=== PATIENT | male | born 1960 | race African-American/Black ===

== ENCOUNTER 2023-10-06 20:09 | Emergency (ER) | payer SELFPAY ==
--- NOTE | ~2023-10-06 | CT_ITS ---
EXAMINATION: CT head for stroke CLINICAL INFORMATION: Reason for Exam dizziness, sudden onset headache COMPARISON: None. TECHNIQUE: Contiguous axial imaging was performed from the skull base to vertex without intravenous contrast. Sagittal and coronal reformatted images were obtained. This CT examination was performed using dose optimization techniques as appropriate, variously including the following: * Automated exposure control * Adjustment of mA and/or kV according to patient size (this includes techniques or standardized protocols for targeted exams where dose is matched to indication/reason for exam; i.e. extremities or head) Use of iterative reconstruction technique DLP: 656 mGy-cm FINDINGS: No acute osseous or soft tissue abnormality. The mastoids are clear. Ethmoid and maxillary sinus mucosal thickening. 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 There is no evidence of acute intracranial hemorrhage or territorial infarction. No abnormal mass effect or midline shift is seen. Haynes to white matter differentiation is well preserved. No extra-axial fluid collections are identified. No hydrocephalus. Cavum septum pellucidum et vergae. No significant volume loss. Patchy periventricular and deep white matter hypoattenuation is consistent with mild small vessel ischemic changes. CT/CT head for stroke IMPRESSION: No acute intracranial abnormality including hemorrhage, mass effect, hydrocephalus, or acute territorial edematous infarction. Above impression was communicated to Dr Abdul on 10/06/2023 8:52 PM
--- NOTE | ~2023-10-06 | MR_ITS ---
EXAMINATION: MR ANGIOGRAPHY BRAIN WITHOUT CONTRAST CLINICAL INFORMATION: crespo ? anurysum ? cva COMPARISON: Same day CT head without contrast TECHNIQUE: Noncontrast [id number] MRA of the head was performed. FINDINGS: Normal flow-related signal within the anterior circulation without evidence of focal stenosis or occlusion of the intradural internal carotid, middle cerebral, or anterior cerebral arteries. Normal flow-related signal within the posterior circulation without evidence of focal stenosis or occlusion of the intradural vertebral, basilar, superior cerebellar, or posterior cerebral arteries. No demonstrated intradural aneurysms. MR/MR angio head wo con IMPRESSION: Normal MRA of the head. No intracranial aneurysm is identified.
[2023-10-06 20:14] VITALS: BP 124/79; PULSE 93; RESP 18; TEMP 36.7; O2SAT 98; BMI 25.3
--- NOTE | 2023-10-06 20:26 | PC.NURSE ---
Charge notified of pt complaint, pt brought back to room 22H.
--- NOTE | 2023-10-06 20:29 | ECG_ITS ---
Test Reason : STROKE? Blood Pressure : / mmHG Vent. Rate : 081 BPM Atrial Rate : 081 BPM P-R Int : 146 ms QRS Dur : 072 ms QT Int : 334 ms P-R-T Axes : 063 054 071 degrees QTc Int : 387 ms Normal sinus rhythm Normal ECG No previous ECGs available Referred By: Flavio Tom Electronically Signed By:JENNIFER MCDONALD MD
[2023-10-06 20:57] LABS: Prothrombin Time Whole Bld POC 13.8 sec (11.1-13.5); ~PT, ~INR - Anti Coag Clinic 1.1 (0.9-1.1)
[2023-10-06] MEDS: Metoclopramide HCl 10 MG/2 ML VIAL IVPUSH (21:02)
[2023-10-06] MEDS: Ketorolac Tromethamine 15 MG/ML VIAL IVPUSH (21:02)
--- NOTE | 2023-10-06 21:03 | ED_ITS ---
HPI - General Adult General Chief complaint: General Medical Stated complaint: dizziness/weakness stroke? THC in system Time Seen by Provider: 10/06/23 20:32 History of Present Illness HPI narrative: Patient is a 62-year-old male presented today with having sudden onset of headache. Patient's headache is diffuse. Patient rates it as extreme. There is no focal weakness. Patient feels somewhat dizzy all day. Then developed a headache. Has no history of migraine. History of asthma. Patient denies any fever chills. No neck pain. He is from home. Related Data Allergies Allergy/AdvReac Type Severity Reaction Status Date / Time No Known Allergies Allergy Verified 10/06/23 20:18 Review of Systems 2 Review of Systems: Positive headache No nausea no vomiting No focal weakness Positive generalized malaise Yes all other systems are reviewed and are negative [facility] Past Medical History Attestation statement: The following information was validated with the patient. Social History Social History Do you have a plan to hurt others: No Plan Physical Exam ED Vital Signs: Vital Signs - 24 hr 10/06/23 20:14 10/06/23 22:18 10/06/23 22:19 Temperature 98.1 F 98.1 F Pulse Rate 93 75 91 Respiratory Rate 18 20 Blood Pressure 124/79 117/66 120/72 Pulse Oximetry 98 97 Oxygen Delivery Method Room Air Room Air 10/06/23 22:19 10/06/23 22:19 Temperature Pulse Rate 84 102 H Respiratory Rate Blood Pressure 120/72 114/72 Pulse Oximetry Oxygen Delivery Method BMI result Body Mass Index 25.3 Appearance: Alert. Oriented X3. No acute distress. Eyes: Pupils equal, round and reactive to light. ENT: Pharynx normal. Neck: Normal inspection. Neck supple. No lymph nodes noted. No crepitus CVS: Normal heart rate and rhythm. Pulses normal. Normal S1 and S2 Respiratory: No respiratory distress. Breath sounds normal. No Wheezing. No rales Abdomen: Soft and nontender. No rigidity. No distention. good BS x4 Skin: Skin warm and dry. Normal skin color. Normal skin turgor. Extremities: No lower extremity edema. Neurovascular intact to all extremities. No Lacerations. No Rash Neuro: Oriented X 3. No motor deficit. No sensory deficit. Moving all extermities. No slurred speech NIH Stroke Scale Internal: Initial- Upon Arrival Time: 21:06 Level of Consciousness: Alert Level of Consciousness Questions: Answers both questions correctly Level of Consciousness Commands: Performs both tasks correctly Best Gaze: Normal Visual: No visual loss Facial Palsy: Normal Motor Arm (Right): No drift Motor Arm (Left): No drift Motor Leg (Right): No drift Motor Leg (Left): No drift Limb Ataxia: Absent Sensory: Normal Best Language: No aphasia Dysarthia: Normal Extinction and Inattention: No abnormality Score: 0 Medications Administered Discontinued Medications Generic Name Dose Route Start Last Admin Trade Name Flor PRN Reason Stop Dose Admin Ketorolac Tromethamine 15 mg 10/06/23 20:56 10/06/23 21:02 Ketorolac Tromethamine 15 Mg/Ml Vial IVPUSH 10/06/23 20:57 15 mg ONCE ONE Administration Metoclopramide HCl 10 mg 10/06/23 20:56 10/06/23 21:02 Metoclopramide Hcl 10 Mg/2 Ml Vial IVPUSH 10/06/23 20:57 10 mg ONCE ONE Administration Medical Decision Making Medical Decision Making MDM Narrative: Patient neurologically intact. NIH stroke scale was 0. Patient has a diffuse headache. Question dizziness. CT scan of the head by my interpretation is grossly negative for any acute evidence of bleed. In the setting of patient's headache started 2 hours ago. Unlikely to have an intracranial bleed. An MRI MRA of the head was ordered. CT scan of the head was grossly negative for any acute evidence of intracranial bleed. Because patient claims he has severe allergies to CT contrast and MRA was done. The MRA showed no acute evidence aneurysm. An MRI was ordered. Patient refused the MRI. When patient returned from the MRI I spoke with him personally, ask him to try getting the MRI 1 more time. Patient went down and then subsequently refused the MRI again. Patient understood the risks including the small risk of a posterior circulation ischemic events. Patient was given medication for the headache with good improvement of symptoms. Neurologically intact on repeat exam. [place] the risk of CVA is low. Patient will require follow-up on an outpatient basis. He is not from this area he will need to be followed up in [place]. Currently in stable condition. Neurologically intact. Headache gone Differential Diagnosis Differential Diagnoses: The differential diagnosis associated with the presentation includes Intracranial bleed. CVA Admission/Observation Consideration of admission/observation: Escalation of care including admission/observation considered Lab Data MDM Lab Attestation statement: I reviewed the patient's lab results. 10/06/23 21:15 10/06/23 21:15 Labs: Lab Results 10/06/23 10/06/23 10/06/23 Range/Units 20:51 21:15 22:21 WBC 4.5 L (4.8-10.8) X10*3/uL RBC 5.26 (4.60-5.80) X10*6/uL Hgb 14.7 (14.0-18.0) g/dl Hct 43.0 (42.0-52.0) % MCV 81.7 (80.0-98.0) fL MCH 27.9 (27.0-33.0) pg MCHC 34.2 (31.0-36.0) g/dl RDW 13.2 (11.0-16.0) % Plt Count 197 (160-400) X10*3/uL MPV 9.3 L (9.4-12.4) fL Immature Gran % (Auto) 0.2 (0.0-0.4) % Neut % (Auto) 42.6 L (45-73) % Lymph % (Auto) 39.1 (20-40) % Island % (Auto) 13.2 H (2-11) % Eos % (Auto) 4.2 H (0-4) % Baso % (Auto) 0.7 (0-2) % Lymph # (Auto) 1.8 (1.2-4.9) X10*3/uL [place] # (Auto) 0.6 (0.1-1.2) X10*3/uL Eos # (Auto) 0.2 (0.0-0.4) X10*3/uL Baso # (Auto) 0.0 (0.0-0.2) X10*3/uL Abs Immat Gran (auto) 0.01 (0.00-0.03) X10*3/uL Absolute Neuts (auto) 1.9 L (2.0-8.3) x10*3/uL Absolute Nucleated RBC 0.000 (0.0-0.012) X10*3/uL Nucleated RBC % (auto) 0.0 (0.0-0.2) /100WBC Whole Blood PT 13.8 H (11.1-13.5) sec Whole Blood INR 1.1 (0.9-1.1) Sodium 143 (135-145) mmol/L Potassium 4.3 (3.3-5.1) mmol/L Chloride 107 (96-108) mmol/L Carbon Dioxide 25 (22-29) mmol/L Anion Gap 15 (12-20) BUN 15 (9-16) mg/dL Creatinine 1.39 (0.5-1.4) mg/dL Estim Creat Clear Calc 58.3 Estimated GFR 52 Random Glucose 94 (60-115) mg/dL Calcium 10.0 (8.4-10.2) mg/dL Magnesium 2.3 (1.6-2.6) mg/dL Total Bilirubin 0.7 (0.0-1.0) mg/dL AST 34 (5-37) U/L ALT 31 (0-40) U/L Alkaline Phosphatase 57 (39-117) U/L Total Protein 7.4 (6.5-8.0) g/dL Albumin 4.2 (3.5-5.0) g/dL Lipase 24 (8-78) U/L Urine Color Yellow Urine Appearance Clear Urine pH 6.0 (5.0-9.0) Ur Specific [place] 1.015 (1.005-1.025) Urine Protein Negative (Neg-Trace) mg/dL Urine Glucose (UA) Negative (Negative) mg/dL Urine Ketones Negative (Negative) mg/dL Urine Blood Negative (Negative) Urine Nitrite Negative (Negative) Ur Leukocyte Esterase Negative (Negative) Influenza Type A (PCR) NEGATIVE (Negative) Influenza Type B (PCR) NEGATIVE (Negative) RSV RNA Qual (PCR) NEGATIVE (Negative) SARS-CoV-2 RNA (RT-PCR) NEGATIVE (Negative) Independent Interpretation I performed an independent interpretation of an: EKG (EKG showed a sinus pattern heart rate is 80 OH QRS QTC normal no acute ST segment elevation) and CT Scan (CT scan of the head was grossly negative.) Radiology Impression Discussion of test interpretation with radiology: I have reviewed the radiologist's reading. Chronic Conditions Patient?s care impacted by: Hypertension Critical Care Time Critical Care Time Critical Care Time: Yes Total Critical Care Time: 40 Attestation: I have personally provided 40 minutes of critical care time exclusive of time spent on separately billable procedures. ?Time includes review of lab data, radiology results, discussion with consultants, and monitoring for potential decompensation. ?Interventions were performed as documented above Discharge Plan Discharge Clinical Impression: Headache Patient Disposition: Home, Self-Care Instructions: Acute Headache (DC) Referrals: Bob Tucker MD [Physician] - 10/10/23
--- NOTE | 2023-10-06 21:18 | PC.NURSE ---
Pt brought in from triage/waiting room as stroke alert for headache that radiates down entire body, weakness and dizziness. Neuros intact, pt able to sign to visitor that is with him and answering questions appropriately. IV Line #18 plaved in L-AC by charge lpn while this RN was with another pt. Pt medicated with Reglan and Toradol per orders. Dry CT complete and negative for bleed. Labs drawn by tech and pt sent to MRI.
[2023-10-06 21:23] LABS: MANUAL DIFF FLAG NO
[2023-10-06 21:26] LABS: Basophils Percent Auto 0.7 % (0-2); Eosinophils Absolute Auto 0.2 X10*3/uL (0.0-0.4); Eosinophils Percent Auto 4.2 % (0-4); Hemoglobin 14.7 g/dl (14.0-18.0); Imm Gran Abs Auto 0.01 X10*3/uL (0.00-0.03); Imm Gran Pct Auto 0.2 % (0.0-0.4); Lymphocytes Absolute Auto 1.8 X10*3/uL (1.2-4.9); Lymphocytes Percent Auto 39.1 % (20-40); Mean Corpuscular HGB Conc 34.2 g/dl (31.0-36.0); Mean Corpuscular Hemoglobin 27.9 pg (27.0-33.0); Mean Corpuscular Volume 81.7 fL (80.0-98.0); Mean Platelet Volume 9.3 fL (9.4-12.4); Monocytes Absolute Auto 0.6 X10*3/uL (0.1-1.2); Monocytes Percent Auto 13.2 % (2-11); Neutrophils Absolute Auto 1.9 x10*3/uL (2.0-8.3); Neutrophils Percent Auto 42.6 % (45-73); Platelet Count 197 X10*3/uL (160-400); Red Blood Count 5.26 X10*6/uL (4.60-5.80); Red Cell Distribution Width 13.2 % (11.0-16.0); White Blood Count 4.5 X10*3/uL (4.8-10.8)
[2023-10-06 21:41] LABS: Alanine Aminotransferase 31 U/L (0-40); Albumin Level 4.2 g/dL (3.5-5.0); Alkaline Phosphatase 57 U/L (39-117); Anion Gap 15 (12-20); Aspartate Amino Transferase 34 U/L (5-37); Bilirubin Total 0.7 mg/dL (0.0-1.0); Blood Urea Nitrogen 15 mg/dL (9-16); Carbon Dioxide 25 mmol/L (22-29); Chloride 107 mmol/L (96-108); Creatinine Clr Calc Pharmacy 58.3; Estimated Glomerular Filt Rate 52; Glucose Random 94 mg/dL (60-115); Lipase 24 U/L (8-78); Magnesium 2.3 mg/dL (1.6-2.6); Potassium 4.3 mmol/L (3.3-5.1); Sodium 143 mmol/L (135-145); Total Protein 7.4 g/dL (6.5-8.0)
[2023-10-06 22:03] LABS: Influenza A PCR NEGATIVE (Negative); Influenza B PCR NEGATIVE (Negative); Resp Syncy Virus RNA Qual PCR NEGATIVE (Negative); SARS COV2 PCR INHOUSE NEGATIVE (Negative)
[2023-10-06 22:18] VITALS: BP 117/66; PULSE 75
[2023-10-06 22:19] VITALS: BP 114/72; BP 120/72; PULSE 102; PULSE 84; PULSE 91; RESP 20; TEMP 36.7; O2SAT 97
[2023-10-06 22:33] LABS: Appearance Urine Clear; Color Urine Yellow; Glucose Urine UA Negative (Negative); Leukocyte Esterase Urine Negative (Negative); Nitrite Urine Negative (Negative); Specific Gravity - Urine 1.015 (1.005-1.025); Urine Blood Negative (Negative); Urine Ketones Negative (Negative); Urine Protein Negative (Neg-Trace)
[2023-10-06 22:38] LABS: Bacteria Urine None Seen (None Seen); Hyaline Casts Urine 0-2 /LPF (0-2); RBC Urine 0-2 /HPF (0-2); Squamous Epithelial Cell Urine 0-2 /HPF (0-2); WBC Urine 0-5 /HPF (0-5)
[2023-10-06 22:41] LABS: Amphetamine Screen Urine Not Detected (Not Detect); Barbiturates, Urine Not Detected (Not Detect); Benzodiazepines Screen Urine Not Detected (Not Detect); Buprenorphine Scr Not Detected (Not Detect); Cannabinoid Screen Urine POSITIVE (Not Detect); Cocaine Screen Urine Not Detected (Not Detect); Fentanyl, urine Not Detected (Not Detect); Methadone Screen, Urine Not Detected (Not Detect); Opiate Screen Urine Not Detected (Not Detect); Oxycodone Screen Urine Not Detected (Not Detect); Phencyclidine Screen Urine Not Detected (Not Detect)
[2023-10-06 23:33] LABS: Troponin-I High Sensitivity < 2.7 ng/L (<3.5-35.0)
== END 2023-10-07 07:10 | disposition home or self-care (01) ==
LOC: HO.ED 23:00
PROVIDERS: Physician Assistant; Emergency Provider Emergency Medicine Emergency Medical Services
DX: R51.9 Headache, unspecified (principal); R29.700 NIHSS score 0; J45.909 Unspecified asthma, uncomplicated; F12.90 Cannabis use, unspecified, uncomplicated; Z03.818 Encounter for observation for suspected exposure to other biological agents ruled out; R53.81 Other malaise
CPT/HCPCS: 0241U; 70450; 70544; 80053; 80307; 81001; 83690; 83735; 84484; 85025; 85610; 93005; 96374; 96375; 99284; 99285; J1885; J2765

== ENCOUNTER → 2023-10-06 20:29 | Outpatient (BNV) | payer SELFPAY | PROVIDERS: Emergency Provider Emergency Medicine Emergency Medical Services; Visit Provider Internal Medicine Cardiovascular Disease | DX: R51.9 Headache, unspecified (principal); R42 Dizziness and giddiness | CPT/HCPCS: 93010 ==